=== PATIENT | female | born 1945 | race Caucasian/White ===

== ENCOUNTER 2022-08-24 11:26 | Observation (INO) ==
[~2022-08-24 11:26] MED LIST: Buffered Lidocaine 1% SYRIN 1 ml INTRADERM ONE; Lactated Ringers 1000 ml BAG 1,000 ML IV SCH; Naloxone 0.4 mg VIAL 0.4 mg/ml 1 ml VIAL IV PRN; Ondansetron 4 mg VIAL 2 MG/ML 2 ml VIAL IV PRN; Tranexamic Acid 1,000 MG in NS 0.9% 50 ML IV ONE; fentaNYL 100 mcg/2 ml 50 MCG/ML VIAL IV PRN
[2022-08-24 12:31] LABS: Rapid COVID-19 Molecular Undetected (Undetected)
[2022-08-24] MEDS ORDERED: Propofol 10 MG/ML 20 ML BTL ONE ×3 (12:35→17:00)
[2022-08-24] MEDS ORDERED: Ondansetron 4 mg VIAL 2 MG/ML 2 ml VIAL ONE (12:35)
[2022-08-24] MEDS ORDERED: Dexamethasone IV 4 MG/ML VIAL 1 ml VIAL ONE (12:35)
[2022-08-24] MEDS ORDERED: Glycopyrrolate IV 0.2 MG/ML 1 ML VIAL ONE (12:35)
[2022-08-24] MEDS ORDERED: Lidocaine 2% PF 5 ML VIAL ONE (12:36)
[2022-08-24] MEDS ORDERED: Midazolam 2 mg/2 ml VIAL 1 mg/ml 2 ml VIAL (2 mg) ONE (12:41)
[2022-08-24] MEDS ORDERED: ceFAZolin 2 GM in NS PREMIX 2 GM/100 ML BAG IVPB ONE (12:59)
[2022-08-24] MEDS ORDERED: Midazolam 5 mg/5 ml VIAL 1 mg/ml 5 ml VIAL (5 mg) ONE (14:16)
[2022-08-24] MEDS ORDERED: ROPIVACAINE 5 MG/ML 30 ML BTL (0.5%) ONE (14:16)
[2022-08-24] MEDS ORDERED: Ropivacaine 5 MG/ML 20 ML VIAL 0.5% (100 MG) ONE ×2 (15:08→16:32)
[2022-08-24] MEDS ORDERED: Ketamine HCL 50 mg/ml 10 ml VIAL (500 MG) ONE (15:44)
[2022-08-24] MEDS ORDERED: fentaNYL 100 mcg/2 ml 50 MCG/ML VIAL ONE (15:54)
[2022-08-24] MEDS ORDERED: Ondansetron 4 mg VIAL 2 MG/ML 2 ml VIAL IV PRN (17:38)
[2022-08-24] MEDS ORDERED: Morphine 2 MG/ML SYRINGE IV PRN (17:38)
[2022-08-24] MEDS ORDERED: Lactulose 30 ml UDC PO PRN (17:38)
[2022-08-24] MEDS ORDERED: Magnesium Hydroxide LIQ 30 ML UDC PO PRN (17:38)
[2022-08-24] MEDS ORDERED: Ondansetron ODT 4 mg TAB 4 MG TAB PO PRN (17:38)
[2022-08-24] MEDS ORDERED: Lactated Ringers 1000 ml BAG 1,000 ML IV SCH (18:00)
[2022-08-24] MEDS ORDERED: oxyCODONE/Acetamin 5/325 mg TAB ONE ×2 (18:23→19:39)
[2022-08-24] MEDS: oxyCODONE/Acetamin 5/325 mg TAB PO PRN ×2 (18:24→19:42)
[2022-08-24] MEDS: Magnesium Hydroxide LIQ 30 ML UDC PO SCH (21:08)
[2022-08-25] MEDS: ceFAZolin 1 GM ADVAN 1 GM in NS 0.9% 50 ML 50 ML IVPB SCH ×2 (00:22→07:42)
[2022-08-25 06:21] LABS: Hematocrit 39.2 % (35-45); Hemoglobin 13.4 g/dL (11.5-14.3); Mean Platelet Volume 8.3 fL (7.5-11.2); Platelet Count 178 10^3/uL (150-450)
[2022-08-25 06:36] LABS: Calcium 8.6 mg/dL (8.6-10.3); Creatinine, Serum 1.02 mg/dL (0.51-0.95); Potassium 4.1 mmol/L (3.5-5.0)
[2022-08-25] MEDS: Magnesium Hydroxide LIQ 30 ML UDC PO SCH (07:42)
[2022-08-25] MEDS ORDERED: Vitamin THERAPEUTIC TAB PO SCH (09:00)
[2022-08-25 11:02] VITALS: BP 126/66
== END 2022-08-25 13:17 | disposition home or self-care (01) ==
LOC: OR 11:26 → SSU 11:26 → EDSTATUS 14:00
PROVIDERS: ADMIT Orthopaedic Surgery Adult Reconstructive Orthopaedic Surgery; ATTEND Orthopaedic Surgery Adult Reconstructive Orthopaedic Surgery

== ENCOUNTER 2022-08-25 20:58 | Observation (INO) ==
[2022-08-25] MEDS ORDERED: oxyCODONE SR 10 mg TAB PO ONE (21:26)
[2022-08-25 22:26] LABS: ABS Lymphocytes 2.8 10^3/uL (1.0-4.8); ABS Monocytes 1.5 10^3/uL (0.0-0.9); ABS Neutrophils 8.9 10^3/uL (1.5-7.6); ABS Nucleated RBC 0.01 10^3/ul; Eosinophil % 0.1 %; Hematocrit 33.7 % (35-45); Hemoglobin 11.7 g/dL (11.5-14.3); Lymphocyte % 21.4 %; Mean Corpuscular Hemoglobin 32.4 pg (27-33); Mean Corpuscular Hgb Conc 34.7 g/dL (31-36); Mean Corpuscular Volume 93.3 fL (80-97); Mean Platelet Volume 8.1 fL (7.5-11.2); Nucleated Red Blood Cells % 0.1 /100 WBC (0.0-0.4); Platelet Count 155 10^3/uL (150-450); Red Blood Count 3.61 10^6/uL (3.63-4.92); Red Cell Distribution Width 13.1 % (12-17); White Blood Count 13.2 10^3/uL (3.8-11.8)
[2022-08-25] MEDS ORDERED: Morphine 4 MG/ML VIAL (1 ml) IV ONE (23:05)
[2022-08-25 23:12] LABS: Albumin 3.8 g/dL (3.2-5.2); Calcium 8.3 mg/dL (8.6-10.3); Potassium 4.3 mmol/L (3.5-5.0); Total Bilirubin 0.9 mg/dL (0.2-1.0)
[2022-08-25 23:18] LABS: Albumin/Globulin Ratio 2.1 (1-3); Creatinine, Serum 0.94 mg/dL (0.51-0.95); Globulin 1.8 g/dL (2-4); Total Protein 5.6 g/dL (6.4-8.9); eGFR CKD-EPI 61.7 (>60)
[2022-08-26] MEDS ORDERED: Acetaminophen IV 1 GM/100ML 1,000 MG/100 ML BAG IV ONE (00:48)
[2022-08-26] MEDS ORDERED: Morphine 2 MG/ML SYRINGE IV ONE (02:19)
[2022-08-26] MEDS ORDERED: Ondansetron 4 mg VIAL 2 MG/ML 2 ml VIAL IV PRN (02:41)
[2022-08-26] MEDS ORDERED: HYDROmorphone 0.5 MG/0.5 ML SYRINGE IV SLOW PU PRN (02:48)
[2022-08-26] MEDS: HYDROmorphone 1 MG/1 ML SYRINGE IV SLOW PU PRN ×2 (04:07→11:33)
[2022-08-26 05:31] LABS: Urine Osmo 276 mOsm/kg (150-1150)
[2022-08-26] MEDS ORDERED: Acetaminophen IV 1 GM/100ML 1,000 MG/100 ML BAG IV SCH (07:00)
[2022-08-26 07:42] LABS: ABS Lymphocytes 2.9 10^3/uL (1.0-4.8); ABS Monocytes 1.4 10^3/uL (0.0-0.9); ABS Neutrophils 7.3 10^3/uL (1.5-7.6); Eosinophil % 0.2 %; Hematocrit 33.8 % (35-45); Hemoglobin 11.8 g/dL (11.5-14.3); Lymphocyte % 24.9 %; Mean Corpuscular Hemoglobin 33.3 pg (27-33); Mean Corpuscular Hgb Conc 34.8 g/dL (31-36); Mean Corpuscular Volume 95.6 fL (80-97); Mean Platelet Volume 8.2 fL (7.5-11.2); Platelet Count 144 10^3/uL (150-450); Red Blood Count 3.54 10^6/uL (3.63-4.92); Red Cell Distribution Width 12.7 % (12-17); White Blood Count 11.6 10^3/uL (3.8-11.8)
[2022-08-26 07:56] LABS: Calcium 8.2 mg/dL (8.6-10.3); Creatinine, Serum 0.94 mg/dL (0.51-0.95); Magnesium 2.1 mg/dL (1.9-2.7); eGFR CKD-EPI 61.7 (>60)
[2022-08-26] MEDS: Polyethylene Glycol 3350 17 GM PACKET PO SCH (11:39)
[2022-08-26] MEDS ORDERED: Senna TAB 8.6 mg TAB PO SCH (21:00)
[2022-08-27] MEDS: Polyethylene Glycol 3350 17 GM PACKET PO SCH (09:05)
[2022-08-27 11:05] VITALS: BP 130/64
== END 2022-08-27 13:45 | disposition home or self-care (01) ==
LOC: EDHOLD 20:58 → ED 20:58 → SUATTDRO 08-26 02:42 → MEDTELE 08-26 05:38
PROVIDERS: ADMIT Hospitalist; ATTEND Internal Medicine

== ENCOUNTER 2023-12-07 07:52 | Observation (INO) ==
[~2023-12-07 07:52] MED LIST changes: -Buffered Lidocaine 1% SYRIN 1 ml INTRADERM ONE; -Lactated Ringers 1000 ml BAG 1,000 ML IV SCH; +Metoclopramide 5 MG/ML VIAL (10 mg) IV PRN; +NS 0.45% 1000 ml BAG 1,000 ML IV SCH; -Tranexamic Acid 1,000 MG in NS 0.9% 50 ML IV ONE
[2023-12-07] MEDS ORDERED: ceFAZolin 2 GM PREMIX 2 GM/50 ML BAG ONE (08:57)
[2023-12-07] MEDS ORDERED: Tranexamic Acid 1 GM/100ML BAG 2,000 MG/200 ML BAG IV ONE (08:57)
[2023-12-07 09:46] LABS: Rapid COVID-19 Molecular Undetected (Undetected)
[2023-12-07] MEDS ORDERED: fentaNYL 100 mcg/2 ml 50 MCG/ML VIAL ONE (09:55)
[2023-12-07] MEDS ORDERED: Lidocaine 1% VIAL 10 MG/ML 30 ML VIAL ONE (09:55)
[2023-12-07] MEDS ORDERED: ROPIVACAINE 5 MG/ML 30 ML BTL (0.5%) ONE ×2 (09:55→11:57)
[2023-12-07] MEDS ORDERED: Midazolam 2 mg/2 ml VIAL 1 mg/ml 2 ml VIAL (2 mg) ONE ×2 (09:55→11:57)
[2023-12-07] MEDS ORDERED: Ropivacaine 0.2% 2 MG/ML VIAL ONE (11:56)
[2023-12-07] MEDS ORDERED: Phenylephrine 40 mcg/mL 10mL (400mcg) SYRINGE ONE (12:59)
[2023-12-07] MEDS ORDERED: Propofol 10 MG/ML 20 ML BTL ONE ×2 (13:29→14:02)
[2023-12-07] MEDS ORDERED: Magnesium Hydroxide LIQ 30 ML UDC PO PRN (14:31)
[2023-12-07] MEDS ORDERED: Calcium Carb (TUMS) 500 mg CHEW TAB PO PRN (14:31)
[2023-12-07] MEDS ORDERED: Lactulose 30 ml UDC PO PRN (14:31)
[2023-12-07] MEDS: Lactated Ringers 1000 ml BAG 1,000 ML IV SCH ×2 (16:23→16:29)
[2023-12-07] MEDS: Scopolamine 1 mg/72hr PATCH TRANSDERM ONE (16:42)
[2023-12-07] MEDS: Acetaminophen IV 1 GM/100ML 1,000 MG/100 ML BAG IV ONE (16:43)
[2023-12-07] MEDS: Buffered Lidocaine 1% SYRIN 1 ml INTRADERM ONE (16:43)
[2023-12-07] MEDS: Magnesium Hydroxide LIQ 30 ML UDC PO SCH (19:35)
[2023-12-07] MEDS: ceFAZolin 2 GM PREMIX 2 GM/50 ML BAG IV SCH (19:38)
[2023-12-07] MEDS: Ondansetron 4 mg VIAL 2 MG/ML 2 ml VIAL IV PRN (20:49)
[2023-12-07] MEDS: Morphine 2 MG/ML SYRINGE IV PRN (21:58)
[2023-12-08] MEDS: Pantoprazole VIAL 40 MG VIAL IV ONE (00:14)
[2023-12-08] MEDS: Prochlorperazine 5 mg/ml 2 ml VIAL (10 mg) IV PRN (00:15)
[2023-12-08] MEDS: Acetaminophen IV 1 GM/100ML 1,000 MG/100 ML BAG IV ONE (00:15)
[2023-12-08 01:01] LABS: Hematocrit 36.8 % (35-45); Mean Corpuscular Hemoglobin 33.3 pg (27-33); Mean Corpuscular Hgb Conc 35.2 g/dL (31-36); Mean Corpuscular Volume 94.6 fL (80-97); Mean Platelet Volume 7.7 fL (7.5-11.2); Platelet Count 157 10^3/uL (150-450); Red Blood Count 3.89 10^6/uL (3.63-4.92); White Blood Count 10.6 10^3/uL (3.8-11.8)
[2023-12-08 06:38] LABS: Hematocrit 37.3 % (35-45); Hemoglobin 12.6 g/dL (11.5-14.3); Platelet Count 163 10^3/uL (150-450)
[2023-12-08 06:49] LABS: Calcium 8.4 mg/dL (8.6-10.3); Creatinine, Serum 1.11 mg/dL (0.51-0.95); Potassium 4.3 mmol/L (3.5-5.0); eGFR CKD-EPI 50.2 (>60)
[2023-12-08] MEDS: Vitamin THERAPEUTIC TAB PO SCH (08:32)
[2023-12-08 09:55] VITALS: BP 122/61
[2023-12-08] MEDS: Ondansetron ODT 4 mg TAB 4 MG TAB PO PRN (11:46)
== END 2023-12-08 13:20 | disposition home or self-care (01) ==
LOC: SSU 07:52 → OR 07:52
PROVIDERS: ADMIT Orthopaedic Surgery Adult Reconstructive Orthopaedic Surgery; ATTEND Orthopaedic Surgery Adult Reconstructive Orthopaedic Surgery